=== PATIENT | male | born 1970 | race African-American/Black ===

== ENCOUNTER 2018-05-04 12:36 | Emergency (ER) | payer OTHER ==
[~2018-05-04] VITALS: Ht 175.3 cm; Wt 117.9 kg
[~2018-05-04 12:36] MED LIST: BACTRIM; BACTRIM DS TAB1 EACH PO; KEFLEX500 MG PO
[2018-05-04] MEDS ORDERED: NORCO 5-325 TA1 EACH PO (15:13)
[2018-05-04] MEDS ORDERED: CYCLOBENZAPRINE5 MG PO (15:13)
[2018-05-04 15:29] VITALS: BP 110/62
== END 2018-05-04 15:30 | disposition home or self-care (01) ==
LOC: ER 12:36
DX: S29.012A Strain of muscle and tendon of back wall of thorax, initial encounter (principal); M25.572 Pain in left ankle and joints of left foot; Z87.440 Personal history of urinary (tract) infections; W05.0XXA Fall from non-moving wheelchair, initial encounter; Y93.89 Activity, other specified; Y92.89 Other specified places as the place of occurrence of the external cause; Y99.8 Other external cause status

== ENCOUNTER 2021-05-05 14:51 | Emergency (ER) | payer OTHER ==
[~2021-05-05] VITALS: Ht 188 cm; Wt 137.9 kg
[~2021-05-05 14:51] MED LIST changes: +CYCLOBENZAPRINE5 MG PO; +NORCO 5-325 TA1 EACH PO
[2021-05-05 15:44] LABS: URINE BILIRUBIN NEGATIVE (Negative); URINE BLOOD 2+ (Negative); URINE COLOR YELLOW; URINE GLUCOSE-RANDOM* NEGATIVE (Negative); URINE KETONES 2+ (Negative); URINE LEUKOCYTES-REFLEX TRACE (Negative); URINE NITRITE-REFLEX NEGATIVE (Negative); URINE PROTEIN (DIPSTICK) 3+ (Negative); URINE SPECIFIC GRAVITY >= 1.030 (1.005-1.035)
[2021-05-05 15:45] LABS: BE(vivo) -29.6 mmol/L (-2 to +3); HCO3 10.4 mmol/L (22.0-26.0); sO2 46.1 % (92.0-98.0)
[2021-05-05 15:46] LABS: PO2 54.3 mmHg (80.0-100.0)
[2021-05-05 15:47] LABS: URINE CLARITY CLOUDY
[2021-05-05 15:59] LABS: SQUAMOUS 0-3 Few /LPF (0-3); URINE WBC-REFLEX 6-15 Few /HPF (0-5)
[2021-05-05 16:00] LABS: BACTERIA-REFLEX >30 Many /HPF (None Seen); CASTS None Seen /LPF (None Seen); CRYSTALS None Seen /LPF (None Seen); URINE RBC >20 Many /HPF (NONE SEEN)
[2021-05-05 16:02] LABS: APTT 51.4 Seconds (24.5-32.8); INR 1.47; PROTIME 15.7 Seconds (10.5-12.1)
--- NOTE | 2021-05-06 10:52 | EKG ---
[address] [place] [address] ELECTROCARDIOGRAM REPORT Name: ROSIE SHAH Room #: [facility]#: [id number] Admission: 05/05/21 Attend Phys: Discharge: Date of : 74 Report #: [id number] [facility] ED Test Date: 2021-05-05 Test Time: 15:05:45 Pat Name: ROSIE SHAH Department: Room: Gender: M [employer] Architect: TIGIST : 1970 Requested By: Tip Chambers Order Number: [id number] MD: Reed Meraz Measurements Intervals [place] Rate: 126 P: -81 HI: 153 QRS: -46 QRSD: 112 T: 46 QT: 347 QTc: 503 Interpretive Statements Sinus or ectopic atrial tachycardia Left anterior fascicular block Nonspecific intraventricular conduction delay Prolonged QT interval Compared to ECG 04/13/2009 19:50:54 Left anterior fascicular block now present Prolonged QT interval now present Nonspecific intraventricular conduction delay is present Electronically Signed On 05-06-2021 10:52:34 [employer] by Reed Meraz [email or web address] <ELECTRONICALLY SIGNED> By: Reed Meraz MD, [facility] 05/06/21 1052 [id number] [id number] Reed Meraz MD, [facility] /EPI
== END 2021-05-05 17:45 ==
LOC: ER 14:51
PROVIDERS: Emergency Medicine
DX: U07.1 COVID-19 (principal); I46.9 Cardiac arrest, cause unspecified; J96.90 Respiratory failure, unspecified, unspecified whether with hypoxia or hypercapnia; Z79.899 Other long term (current) drug therapy